=== PATIENT | female | born 1990 | race Caucasian/White ===

== ENCOUNTER 2022-01-30 16:09 | Emergency (ER) | payer SELFPAY ==
[2022-01-30 16:15] VITALS: BP 121/78
[2022-01-30] MEDS ORDERED: SODIUM CHLORIDE 0.9% 1000 ML 1,000 ML IV ONE (17:12)
[2022-01-30] MEDS ORDERED: diphenhydrAMINE 50 MG/ML VIAL IV ONE (17:12)
[2022-01-30] MEDS ORDERED: METOCLOPRAMIDE 10 MG/2 ML INJ IV ONE (17:12)
--- NOTE | 2022-01-30 17:17 | Emergency Department Report ---
ED General Adult HPI - General Chief complaint: Abdominal Pain Stated complaint: CHEST PAIN/SOB Time Seen by Provider: 01/30/22 16:40 Source: family Mode of arrival: Wheelchair Limitations: Language Barrier - History of Present Illness Initial comments: 31-year-old female who denies any significant past medical history was brought into the ER by family member with complaints of headache, syncope, shortness of breath, nausea and vomiting. Patient does not appear to be feeling well and so majority of the history was obtained from her significant other. He reports that patient has been complaint of a headache for the few days which is worse with light but it got worse today. He states that patient also had a syncopal episode today. Prior to the syncopal episode she was complaining of generalized weakness, headache and shortness of breath. Denies any head injury recently no after having a syncopal episode. He states that patient had subjective fever couple days ago but this has since resolved but she did start vomiting today and she is vomited multiple times in the past 3 hours. Patient denies any history of headaches. Patient denies any abdominal pain, diarrhea, UTI symptoms, abnormal vaginal symptoms neck pain, lower extremity swelling or calf pain. Denies any recent travel out of the country, ill contacts or recent antibiotic use. Patient is currently on her last menstrual cycle. She is on Depo. She denies any illicit drug use or alcohol abuse. She has not been recently tested for COVID-19. She has not gotten the vaccine. Complaint: HOLLOWAY/Syncope/SOB -: days(s) - Related Data Previous Rx's Medication Instructions Recorded Last Taken Type Butalb/Acetamin/Caff 50-325-40 1 tab PO Q6HR PRN #15 tab 01/30/22 Unknown Rx [Fioricet 50-325-40] Ondansetron [Zofran Odt] 4 mg PO Q8HR #15 tab.rapdis 01/30/22 Unknown Rx Allergies Allergy/AdvReac Type Severity Reaction Status Date / Time No Known Allergies Allergy Verified 01/30/22 17:30 ED Review of Systems ROS: Stated complaint: CHEST PAIN/SOB Other details as noted in HPI Comment: All other systems reviewed and negative Constitutional: fever, weakness Respiratory: shortness of breath Cardiovascular: syncope. denies: chest pain, palpitations, dyspnea on exertion, edema, paroxysmal nocturnal dyspnea Gastrointestinal: nausea, vomiting Genitourinary: denies: urgency, dysuria, frequency, hematuria, discharge, abnormal menses, dyspareunia Musculoskeletal: denies: back pain, joint swelling, arthralgia Skin: denies: rash, lesions, change in color, change in hair/nails, pruritus Neurological: headache. denies: numbness, paresthesias, confusion, abnormal ga it, vertigo Psychiatric: denies: anxiety, depression, auditory hallucinations, visual hallucinations, homicidal thoughts, suicidal thoughts Hematological/Lymphatic: denies: easy bleeding, easy bruising, swollen glands ED Past Medical Hx - Past Medical History Previous Medical History?: No - Surgical History Past Surgical History?: No - Social History Smoking Status: Never Smoker - Medications Home Medications: Home Medications Medication Instructions Recorded Confirmed Last Taken Type Butalb/Acetamin/Caff 50-325-40 1 tab PO Q6HR PRN #15 tab 01/30/22 Unknown Rx [Fioricet 50-325-40] Ondansetron [Zofran Odt] 4 mg PO Q8HR #15 tab.rapdis 01/30/22 Unknown Rx ED Physical Exam - General Limitations: Language Barrier General appearance: alert, other (Patient appears to not be feeling well actively vomiting in the room. She is not toxic) - Head Head exam: Present: atraumatic, normocephalic - Eye Eye exam: Present: normal appearance, PERRL, EOMI Pupils: Present: normal accommodation - ENT ENT exam: Present: normal exam, mucous membranes moist - Neck Neck exam: Present: normal inspection, full ROM. Absent: tenderness, meningismus - Respiratory Respiratory exam: Present: normal lung sounds bilaterally. Absent: respiratory distress, wheezes, rales, rhonchi, stridor, chest wall tenderness - Cardiovascular Cardiovascular Exam: Present: regular rate, normal rhythm, normal heart sounds - GI/Abdominal GI/Abdominal exam: Present: soft. Absent: distended, tenderness, guarding, rebound - Extremities Exam Extremities exam: Present: normal inspection, full ROM. Absent: pedal edema, calf tenderness - Neurological Exam Neurological exam: Present: alert, oriented X3, CN II-XII intact, normal gait - Psychiatric Psychiatric exam: Present: normal affect, normal mood - Skin Skin exam: Present: intact ED Course Vital Signs 01/30/22 16:11 Temperature 98.6 F Pulse Rate 83 Respiratory 18 Rate Blood Pressure 121/78 O2 Sat by Pulse 99 Oximetry ED Medical Decision Making - Lab Data Result diagrams: 01/30/22 17:23 01/30/22 17:23 - EKG Data EKG shows normal: sinus rhythm Rate: normal (89) No standard instances Rhythm: PVC's (multiform) - Radiology Data Radiology results: report reviewed interpreted by me: Patient: KRISTAL AVILEZ MR#: [id number] : 1990 Acct:[id number] Age/Sex: 31 / F ADM Date: 01/30/22 Loc: ED Attending Dr: Ordering Physician: ORA MORALES Date of Service: 01/30/22 Procedure(s): CT head/brain wo con Accession Number(s): [id number] cc: ORA MORALES CT HEAD WITHOUT CONTRAST INDICATION / CLINICAL INFORMATION: Syncope/HOLLOWAY. TECHNIQUE: All CT scans at this location are performed using CT dose reduction for ALARA by means of automated exposure control. COMPARISON: None available. FINDINGS: HEMORRHAGE: No evidence of intracranial hemorrhage or extra-axial fluid collection. EXTRA-AXIAL SPACES: Cortical sulci, sylvian fissures and basilar cisterns have an unremarkable appearance. VENTRICULAR SYSTEM: The third and lateral ventricles are of normal size and configuration. CEREBRAL PARENCHYMA: No areas of abnormal brain parenchymal attenuation are identified. There is no indication of recent infarction. MIDLINE SHIFT OR HERNIATION: There is no mass effect. CEREBELLUM / BRAINSTEM: Brainstem and cerebellum have an unremarkable appearance. MIDLINE STRUCTURES:No abnormalities of the pituitary gland or pineal region are identified. INTRACRANIAL VESSELS:No abnormalities are identified on this noncontrast head CT. ORBITS: visualized portions of the orbits have an unremarkable appearance. SOFT TISSUES of HEAD: No significant abnormality. CALVARIUM: Evaluation of bone windows reveals no abnormalities. PARANASAL SINUSES / MASTOID AIR CELLS: Visualized portions of the paranasal sinuses are free from inflammatory mucosal disease. Mastoid air cells are normally pneumatized. IMPRESSION: 1. Normal head CT without contrast. Signer Name: Mario Mandujano MD Signed: 01/30/2022 6:37 PM Workstation Name: [id number] Transcribed By: Dictated By: Mario Mandujano MD Electronically Authenticated By: Mario Mandujano MD Signed Date/Time: 01/30/221836 DD/ 35 TD/TT: - Medical Decision Making 2042: All labs reviewed-CBC shows leukocytosis with a white count of 14 oth erwise unremarkable. CMP unremarkable. Urinalysis negative for UTI. hCG is negative. Troponin is normal. EKG showed PVCs but no STEMI or significant dysrhythmia. CT head shows nothing acute. Chest x-ray is normal. Patient did receive IV fluids, Reglan and Benadryl. She is currently observed resting comfortably on recliner.. She is easily arousable, and she was able to ambulate in the ER without any difficulty or distress. She is currently not in any respiratory distress or pain distress. She has no meningeal signs on exam. Chest clear to auscultation. Exact cause of her symptoms unclear, could be a viral illness, but at this time there is no indication for any additional testi ng including LP or admission to the hospital or specialist consult. Discussed results with patient. Discussed suspected diagnosis with patient. I did recommend she get an outpatient COVID-19 test. She will give medication to help her symptoms and recommended she continue to hydrate by drinking fluids. Patient expressed understanding of instructions and agree with plan. Patient was stable at time of discharge. Critical care attestation.: If time is entered above; I have spent that time in minutes in the direct care of this critically ill patient, excluding procedure time. ED Disposition Clinical Impression: Headache, Vomiting, Syncope Disposition: 01 HOME / SELF CARE / HOMELESS Is pt being admited?: No Does the pt Need Aspirin: No Condition: Stable Instructions: General Headache Without Cause, Nausea and Vomiting, Adult, [id number], Syncope, [id number], Syncope (ED), Abdominal Pain (ED) Additional Instructions: I recommend that you take the Zofran and the Fioricet as prescribed . Continue to maintain hydration by drinking lots of fluids. Your symptoms could be related to a viral illness, Covid could also be a possibility and if I recommend that you follow-up with the urgent care a local pharmacy or clinic to get an outpatient COVID-19 test tomorrow or the day after. Follow-up with your primary care doctor. Return to the ER if your symptoms changes or worsens in any way. Prescriptions: Butalb/Acetamin/Caff 50-325-40 [Fioricet 50-325-40] 1 tab PO Q6HR PRN #15 tab PRN Reason: Headache Ondansetron [Zofran Odt] 4 mg PO Q8HR #15 tab.rapdis Referrals: FROYLAN CARDONA MD [Primary Care Provider] - 3-5 Days Forms: Work/School Release Form(ED) Time of Disposition: 20:39
[2022-01-30 17:54] LABS: Basophils # (Auto) 0.1 K/mm3 (0.0-0.1); Basophils % (Auto) 0.5 % (0.0-1.8); Eosinophils % (Auto) 0.3 % (0.0-4.3); Hematocrit 36.6 % (30.3-42.9); Hemoglobin 11.9 gm/dl (10.1-14.3); Lymphocytes # (Auto) 1.7 K/mm3 (1.2-5.4); Lymphocytes % (Auto) 12.3 % (13.4-35.0); Mean Corpuscular HGB Conc 33 % (30-34); Mean Corpuscular Volume 82 fl (79-97); Monocytes # (Auto) 0.5 K/mm3 (0.0-0.8); Monocytes % (Auto) 3.9 % (0.0-7.3); Platelet Count 284 K/mm3 (140-440); Red Blood Count 4.48 M/mm3 (3.65-5.03); Red Cell Distribution Width 15.2 % (13.2-15.2)
[2022-01-30 18:19] LABS: Alanine Aminotransferase 15 units/L (7-56); Albumin 4.2 g/dL (3.9-5); Blood Urea Nitrogen 15 mg/dL (7-17); Hemolysis Index 5
[2022-01-30 18:21] LABS: BUN/Creatinine Ratio 30
--- NOTE | 2022-01-30 18:41 | Cat Scan Report ---
CT HEAD WITHOUT CONTRAST INDICATION / CLINICAL INFORMATION: Syncope/HOLLOWAY. TECHNIQUE: All CT scans at this location are performed using CT dose reduction for ALARA by means of automated e xposure control. COMPARISON: None available. FINDINGS: HEMORRHAGE: No evidence of intracranial hemorrhage or extra-axial fluid collection. EXTRA-AXIAL SPACES: Cortical sulci, sylvian fissures and basilar cisterns have an unremarkable appear ance. VENTRICULAR SYSTEM: The third and lateral ventricles are of normal size and configuration. CEREBRAL PARENCHYMA: No areas of abnormal brain parenchymal attenuation are identified. There is no i ndication of recent infarction. MIDLINE SHIFT OR HERNIATION: There is no mass effect. CEREBELLUM / BRAINSTEM: Brainstem and cerebellum have an unremarkable appearance. MIDLINE STRUCTURES:No abnormalities of the pituitary gland or pineal region are identified. INTRACRANIAL VESSELS:No abnormalities are identified on this noncontrast head CT. ORBITS: visualized portions of the orbits have an unremarkable appearance. SOFT TISSUES of HEAD: No significant abnormality. CALVARIUM: Evaluation of bone windows reveals no abnormalities. PARANASAL SINUSES / MASTOID AIR CELLS: Visualized portions of the paranasal sinuses are free from inf lammatory mucosal disease. Mastoid air cells are normally pneumatized. IMPRESSION: 1. Normal head CT without contrast. Signer Name: Mario Mandujano MD Signed: 01/30/2022 6:37 PM Workstation Name: [email or web address]
[2022-01-30 19:48] LABS: HCG Qualitative,Urine Negative (Negative)
[2022-01-30 19:53] LABS: Bilirubin,Urine NEG (Negative); Blood,Urine LG (Negative); Color,Urine Red (Yellow); Mucus,Urine FEW /HPF; Urobilinogen,Urine < 2.0 mg/dL (<2.0)
[2022-01-30 19:54] LABS: RBC,Urine > 182.0 /HPF (0.0-6.0)
--- NOTE | 2022-01-30 20:15 | XRay Report ---
CHEST 2 VIEWS INDICATION / CLINICAL INFORMATION: SOB/Syncope. COMPARISON: None available. FINDINGS: SUPPORT DEVICES: None. HEART / MEDIASTINUM: No significant abnormality. LUNGS / PLEURA: No significant pulmonary or pleural abnormality. No pneumothorax. ADDITIONAL FINDINGS: No significant additional findings. IMPRESSION: 1. No acute findings. Signer Name: Avinash Parr MD Signed: 01/30/2022 8:11 PM Workstation Name: [id number]
--- NOTE | 2022-02-02 08:34 | Electrocardiograph Report ---
[facility] Test Date: 2022-01-30 Test Time: 16:51:13 Pat Name: KRISTAL AVILEZ Department: Room: Gender: F [employer]ator: DESTINEE WHITEB: 1990 Requested By: JOVANNI LAKE Order Number: [id number] Reading MD: Pro Wood Measurements Intervals [place] Rate: 89 P: 63 [place]: 140 QRS: 30 QRSD: 88 T: 42 QT: 375 QTc: 447 Interpretive Statements Sinus rhythm ventricular premature complexes No previous ECG available for comparison Electronically Signed On 02-02-2022 8:34:06 EDT by Pro Wood
== END 2022-01-30 21:13 | disposition home or self-care (01) ==
LOC: ED 16:09
DX: R51.9 Headache, unspecified (principal); R11.10 Vomiting, unspecified; R55 Syncope and collapse
CPT/HCPCS: 36415; 70450; 71046; 80053; 81001; 81025; 83690; 84484; 85025; 85379; 93005; 96361; 96374; 96375; 99285; J1200; J2765; J7030; 99284; Q0162

== ENCOUNTER 2022-05-12 01:55 | Emergency (ER) | payer SELFPAY | END 2022-05-12 07:10 | disposition left against medical advice (07) | LOC: ED 01:55 | DX: R10.9 Unspecified abdominal pain (principal); Z53.21 Procedure and treatment not carried out due to patient leaving prior to being seen by health care provider ==